=== PATIENT | female | born 1995 | race Caucasian/White ===

== ENCOUNTER 2016-05-09 09:13 | Inpatient (IN) | payer OTHER ==
[~2016-05-09] VITALS: Ht 167.6 cm; Wt 71.7 kg
[~2016-05-09 09:13] MED LIST: CLX20 PO
[2016-05-09] MEDS ORDERED: MULT-506 PO (09:39)
[2016-05-09] MEDS ORDERED: LORA-741 PO (09:39)
[2016-05-09] MEDS ORDERED: FLUO20CA35 PO (09:39)
[2016-05-09 10:19] LABS: HEMATOCRIT 40.4 % (37-47); MEAN CELL VOLUME 88.8 fL (80-100); MEAN CORPUSCULAR HEMOGLOBIN 30.5 pg (25-34); MEAN CORPUSCULAR HGB CONC 34.4 g/dl (32-36); MEAN PLATELET VOLUME 12.9 fL (7.4-10.4); PLATELET COUNT 164 K/uL (130-400); RED BLOOD COUNT 4.55 M/uL (4.2-5.4); WHITE BLOOD COUNT 4.05 K/uL (4.8-10.8)
[2016-05-09 10:37] LABS: BENZODIAZEPINE, URINE NEG (NEG); COCAINE,URINE NEG (NEG); PHENCYCLIDINE, URINE NEG (NEG)
[2016-05-09 10:44] LABS: BUN/CREATININE RATIO 11.1 (10-20); CALCIUM 9.2 mg/dl (8.5-10.1); CREATININE 0.83 mg/dl (0.60-1.20); POTASSIUM 3.5 mmol/L (3.5-5.1)
[2016-05-09 10:49] LABS: ACETAMINOPHEN < 2 ug/ml (10-30)
[2016-05-09 10:56] LABS: THYROID STIMULATING HORMONE 5.37 uIu/ml (0.300-4.500)
[2016-05-09] MEDS ORDERED: LORAZEPAM 0.5 MG TAB SL STA (14:38)
[2016-05-09 16:04] VITALS: O2SAT 99
--- NOTE | 2016-05-09 16:35 | EMERGENCY ROOM VISIT NOTE ---
History Report prepared by Jerel: Shayy Henry Under the Supervision of: Dr. Gene Muir M.D. First contact with patient: 09:34 Chief Complaint: ANXIETY Stated Complaint: ANXIETY, CHEST PRESURE History of Present Illness The patient is a 21 year old female who presents to the Emergency Room with complaints of progressively worsening anxiety and depression since she stopped taking Lexapro 1.5 months prior to arrival. 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 She states that the chest tightness and shortness of breath or common when she gets anxiety. They are not new symptoms or worsening. The patient has a history of anxiety and depression and was previously prescribed Lexapro, however, after she lost her insurance a few months ago, she was no longer able to get her script filled, so she weaned herself off of it, and completely stopped taking it 1.5 months ago. When she first stopped taking the medication, patient states that she was feeling fine, however, over the last several weeks, she has become progressively anxious and depressed. Patient states that she has now been having difficulty focusing as she has been having increased frequency of thoughts of wanting to hurt herself. She has though about "shooting herself", and states that there are fire arms locked away in her house, however she denies having a specific plan and she does not believe that she could follow through with it because she feels too scared. However, as her anxiety and depression have become worse, she is afraid that she may eventually overcome her fear, and then be able to harm herself, which has brought her to the ED today. The patient states that she was previously following up with psychiatry but she has not been able to see anyone for the past couple of months due to losing her insurance. She has been under increased stress as she is currently in the process of buying a house. Patient is not currently on control and she denies history of blood clots in her lungs or legs/ She also denies recent immobility, prolonged travels, fevers or cough. She does not believe that she is currently , but states that there is "always a chance". Source of History: patient Onset: over the past 1.5 months Position: other (generalized) Quality: other (anxiety, depression) Timing: worsening Modifying Factors (Worsening): other (stopping Lexapro) Associated Symptoms: + SOB, + chest pain, No fevers Review of Systems See HPI for pertinent positives & negatives. A total of 10 systems reviewed and were otherwise negative. Past Medical & Surgical Medical Problems: (1) Asthma (2) Bronchitis Surgical Problems: (1) History of cholecystectomy Family History Cancer Diabetes mellitus FHx: gallbladder disease Hypertension Social History Smoking Status: Current Some Day Smoker Alcohol Use: none, occasionally Marital Status: Housing Status: lives with family Occupation Status: employed Current/Historical Medications Scheduled Multivitamin (Multivitamin), 1 TAB PO DAILY Allergies Coded Allergies: Amoxicillin (Verified Allergy, Unknown, ., 05/09/16) Physical Exam Vital Signs Date Time Temp Pulse Resp B/P Pulse Ox O2 Delivery O2 Flow Rate FiO2 05/09/16 11:00 81 16 107/73 99 Room Air 05/09/16 09:26 36.8 99 18 134/89 100 Room Air Physical Exam Constitutional: Vital signs reviewed. Eyes: Pupils are equal round reactive to light. Conjunctiva are noninjected. ENT: Pharynx is clear without erythema or exudate. Mucous membranes are moist. Neck supple without meningeal signs. Respiratory: Clear to auscultation bilaterally. Breath sounds are equal bilaterally. Cardiovascular: Regular rate and rhythm. No rubs or gallops. GI: Soft, nondistended and nontender. Bowel sounds are present. Musculoskeletal: No peripheral edema. No lower extremity tenderness. Integumentary: No cyanosis. Neurological: The patient is awake and alert. No focal deficits. Psychiatric: Anxious, depressed affect. Medical Decision & Procedures Laboratory Results 05/09/16 10:00 05/09/16 10:00 Test 05/09/16 09:37 05/09/16 10:00 Urine Test NEG (NEG) Urine Opiates Screen NEG (NEG) Urine Methadone, Qualitative NEG (NEG) Urine Barbiturates NEG (NEG) Urine Phencyclidine (PCP) Level NEG (NEG) Ur Amphetamine/Methamphetamine NEG (NEG) MDMA (Ecstasy) Screen NEG (NEG) Urine Benzodiazepines Screen NEG (NEG) Urine Cocaine Metabolite NEG (NEG) Urine Marijuana (THC) NEG (NEG) Red Blood Count 4.55 M/uL (4.2-5.4) Mean Corpuscular Volume 88.8 fL (80-100) Mean Corpuscular Hemoglobin 30.5 pg (25-34) Mean Corpuscular Hemoglobin Concent 34.4 g/dl (32-36) RDW Standard Deviation 42.1 fL (36.4-46.3) RDW Coefficient of Variation 13.0 % (11.5-14.5) Mean Platelet Volume 12.9 fL (7.4-10.4) Anion Gap 9.0 mmol/L (3-11) Est Creatinine Clear Calc Drug Dose 111.1 ml/min Estimated GFR () 116.8 Estimated GFR (Non- 100.8 BUN/Creatinine Ratio 11.1 (10-20) Calcium Level 9.2 mg/dl (8.5-10.1) Total Bilirubin 1.0 mg/dl (0.2-1) Direct Bilirubin 0.2 mg/dl (0-0.2) Aspartate Amino Transf (AST/SGOT) 11 U/L (15-37) Alanine Aminotransferase (ALT/SGPT) 15 U/L (12-78) Alkaline Phosphatase 43 U/L (45-117) Total Protein 7.7 gm/dl (6.4-8.2) Albumin 4.5 gm/dl (3.4-5.0) Thyroid Stimulating Hormone (TSH) 5.370 uIu/ml (0.300-4.500) Free Thyroxine 1.25 ng/dl (0.80-1.60) Salicylates Level < 1.7 mg/dl (2.8-20) Acetaminophen Level < 2 ug/ml (10-30) Ethyl Alcohol mg/dL < 3.0 mg/dl (0-3) .Laboratory results as reviewed by me. Medications Administered ECG Indication: chest pain Rate (beats per minute): 83 Rhythm: normal sinus Findings: no acute ischemic change, no ectopy ED Course 0938: The patient was evaluated in room A6. A complete history and physical exam was performed. 1105: The patient was medically cleared at this time. Psychiatric case management will talk with the patient about possible treatment options. 1200: Case management has spoken with the patient about possible treatment options. Alvin Lewis will be in to evaluate her. 1438: Patient was beginning to feel more anxious. Ativan tab 0.5 mg SL was ordered. 1500: [facility] has evaluated the patient. She will be transferred up to their facility for further management. The patient verbalized understanding and agreement with this treatment plan. Medical Decision This is a 21-year-old female presents with anxiety, depression and suicidal ideation. I did perform a limited focused review of portions of the patient's old chart on the electronic medical record. The patient was here in 2010 for chest pain. She had a negative CT of her chest during her visit at that time. I did evaluate the patient as noted above. The patient has lost her medical insurance and stopped taking her Lexapro as well as became unable to see her physicians. She has had increasing depression and suicidal ideation and anxiety. She does complain of chest tightness and shortness of breath but states that this is common when she gets anxiety. She does not have any known risk factors for pulmonary embolism or cardiac disease. Her symptoms did improve with Ativan she took earlier today. She does state that the Ativan was and maybe less effective because of this. I did order and personally review the patient's 12-lead EKG as described above. I did order and review the patient's blood work as noted in the electronic medical record. I did treat the patient with Ativan 0.5 mg sublingually. I did medically clear the patient. She was evaluated by mental health and admitted to [facility]. Impression Primary Impression: Mood disorder Additional Impression: Suicidal ideation Scribe Attestation The scribe's documentation has been prepared under my direct and personally reviewed by me in its entirety. I confirm that the note above accurately reflects all work, treatment, procedures, and medical decision making performed by me. Departure Information Dispostion Mental Health Acute Care Referrals Sven Galindo M.D. (PCP) Problem Qualifiers
[2016-05-09] MEDS ORDERED: ACETAMINOPHEN 325 MG TAB PO PRN (16:45)
[2016-05-09] MEDS ORDERED: SODIUM CHLORIDE 0.65% NA SOLN 45 ML (OCEAN) PRN (16:45)
[2016-05-09] MEDS ORDERED: ALUMINUM/MAGNESIUM SUSP 30 ML UDC PO PRN (16:45)
[2016-05-09] MEDS ORDERED: hydrOXYzine HCL 25 MG TAB PO PRN ×2 (16:45)
[2016-05-09] MEDS ORDERED: BISMUTH SUBSALICYLATE PER ML OMNICELL CHARGE PO PRN (16:45)
[2016-05-09] MEDS ORDERED: MAGNESIUM HYDROXIDE SUSP 30 ML UDC PO PRN (16:45)
[2016-05-09 16:50] VITALS: BP 122/75; PULSE 82; TEMP 36.8; BMI 25.5
[2016-05-09 16:53] VITALS: BP 122/75; PULSE 82; TEMP 36.8; Ht 167.6 cm; Wt 71.7 kg
[2016-05-10 06:50] VITALS: BP_SYST 113; BP_SYST 116; BP_DIAS 59; BP_DIAS 71; PULSE 112; PULSE 82; TEMP 36.8
[2016-05-10] MEDS ORDERED: LORAZEPAM 1 MG TAB PO PRN (11:45)
[2016-05-10] MEDS ORDERED: ESCITALOPRAM OXALATE 10 MG TAB PO ONE (12:00)
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
[2016-05-11 06:57] VITALS: BP_SYST 106; BP_SYST 111; BP_DIAS 62; BP_DIAS 66; PULSE 73; PULSE 78; TEMP 36.8
[2016-05-11] MEDS: ESCITALOPRAM OXALATE 10 MG TAB PO SCH (09:08)
--- NOTE | 2016-05-11 12:55 | Psychiatric Progress Notes ---
Progress Note Date of Service May 11, 2016. Interval History 21 yo female admitted voluntarily on 05/10 with severe depression, anxiety and panic. had been stable on meds for 2 years, but went off of meds 1-2 months ago , and destabilized. Chief Complaint "I had a panic attack in group.". Subjective Patient was seen & assessed interval progress reviewed with Treatment Team. The patient remains anxious today. She says that she woke feeling anxious as she has been, and then waited in anticipation of having a panic attack, which then occurred during group. Nothing in group triggered it, but says just waiting for it did. She was able to get through it herself, without use of meds. Yesterday she had a panic attack and used ativan prn which she found unhelpful until she took a prn of vistaril afterward. Her mood remains depressed with some thought of SI as she doesn't want to live with the panic attacks. She is now convinced that she would rather stay on meds for the rest of her life than suffer the attacks. Review of Systems Constitutional: + fatigue ENT: No dental problems, No hearing loss, No nasal symptoms, No problem reported, No sore throat, No tinnitus, No trouble swallowing, No unusual epistaxis Respiratory: + shortness of breath (with panic) Cardiovascular: No PND, No chest pain, No claudication, No edema, No orthopnea , No palpitations, No problem reported Abdomen: No GI bleeding, No constipation, No diarrhea, No nausea, No pain, No problem reported, No vomiting Musculoskeletal: No calf pain, No joint pain, No muscle pain, No problem reported, No swelling Neurologic: No balance problems, No memory loss, No numbness/tingling, No paralysis, No problem reported, No vertigo, No weakness Psychiatric: + anxiety (with panic), + depression symptoms (with SI) Sleep Information Total Hours of Sleep: 6.50 Meal Information Percent of Breakfast Consumed: 100 Percent of Dinner Consumed: 25 Mental Status Exam During interview pt is: alert and oriented, cooperative Appearance: appropriately dressed, appropriately groomed Eye contact is: good Motor behavior is: steady gait & station, no abnormal motor movements Speech: normal in rate, rhythm & volume Affect: mood congruent, flat Mood is: depressed, anxious Thought process: goal directed, linear, logical Thought content: reality based without delusions Suicidal thought are: present Homicidal thoughts are: denied Hallucinations: denies auditory, denies visual Cognition: memory grossly intact, attention grossly intact Intelligence estimated to be: average Insight: impaired Judgement: impaired Impression The patient remains depressed and anxious. Panic continues. Lexapro restarted yesterday and tolerating without side effects. Will titrate to 20 mg as soon as possible. Family meeting with scheduled for today. Continued Inpatient Care The patient continues to require inpatient care due to the severity of her condition and the risk for suicide if discharged. Plan (1) Major depressive disorder, recurrent severe without psychotic features 05/11 - Continue Lexapro 10 mg. daily - Family meeting with today - Q 15 min checks for safety - Encourage participation in group and individual counseling - The patient will need psychiatric aftercare - Assist the patient to learn and utilize healthy coping strategies. - obtain op records from previous providers (2) GERA (generalized anxiety disorder) 05/11 - Lexapro as above - Continue prn ativan and vistaril for panic - Expose the patient to education re: mindfulness, meditation, relaxation Discharge / Aftercare Planning Primary Care Physician: Name: Dr. Galindo Psychiatrist: Name: Dr. Deleon in the past Therapist: Name: Libby Lin [facility] Date of Appointment: May 22, 2016 Time of Appointment: 2pm Wireless Team Member: Name: none Visit Code E&M Code: 95789 Risk Factors Assessment : Yes /single/: No Higher / Fall in social status: No Access to guns: No Health problems: No Mental Health Diagnoses: Yes Substance use disorders: No Protective Factors Assessment : Yes Responsible for young children: No Employed: Yes Supportive family: Yes Data Vital Signs Last 24 Hrs: Date Time Temp Pulse Resp B/P Pulse Ox O2 Delivery O2 Flow Rate FiO2 05/11/16 06:57 36.8 78 16 106/66 73 111/62 Meds Administered Last 24 Hrs: Meds Administered (Past 24Hrs) Medications (Trade) Dose Ordered Sig/Howard Route Start Time Stop Time Status Last Admin Dose Admin Lorazepam (Ativan Tab) 0.5 mg NOW STAT SL 05/09/16 14:38 05/09/16 14:40 DC 05/09/16 14:42 0.5 MG Hydroxyzine HCl (Vistaril Tab) 25 mg Q4H PRN PO 05/09/16 16:45 06/08/16 16:44 05/10/16 16:32 25 MG Escitalopram Oxalate (Lexapro Tab) 10 mg QAM PO 05/11/16 09:00 06/10/16 08:59 05/11/16 09:08 10 MG Escitalopram Oxalate (Lexapro Tab) 10 mg NOW ONCE PO 05/10/16 12:00 05/10/16 12:01 DC 05/10/16 12:23 10 MG Lorazepam (Ativan Tab) 0.5 mg Q8 PRN PO 05/10/16 11:45 06/09/16 11:44 05/10/16 14:18 0.5 MG Lab Results Last 24 Hrs: 05/09/16 10:00 05/09/16 10:00 Test 05/09/16 09:37 05/09/16 10:00 Urine Test NEG (NEG) Urine Opiates Screen NEG (NEG) Urine Methadone, Qualitative NEG (NEG) Urine Barbiturates NEG (NEG) Urine Phencyclidine (PCP) Level NEG (NEG) Ur Amphetamine/Methamphetamine NEG (NEG) MDMA (Ecstasy) Screen NEG (NEG) Urine Benzodiazepines Screen NEG (NEG) Urine Cocaine Metabolite NEG (NEG) Urine Marijuana (THC) NEG (NEG) Red Blood Count 4.55 M/uL (4.2-5.4) Mean Corpuscular Volume 88.8 fL (80-100) Mean Corpuscular Hemoglobin 30.5 pg (25-34) Mean Corpuscular Hemoglobin Concent 34.4 g/dl (32-36) RDW Standard Deviation 42.1 fL (36.4-46.3) RDW Coefficient of Variation 13.0 % (11.5-14.5) Mean Platelet Volume 12.9 fL (7.4-10.4) Anion Gap 9.0 mmol/L (3-11) Est Creatinine Clear Calc Drug Dose 111.1 ml/min Estimated GFR () 116.8 Estimated GFR (Non- 100.8 BUN/Creatinine Ratio 11.1 (10-20) Calcium Level 9.2 mg/dl (8.5-10.1) Total Bilirubin 1.0 mg/dl (0.2-1) Direct Bilirubin 0.2 mg/dl (0-0.2) Aspartate Amino Transf (AST/SGOT) 11 U/L (15-37) Alanine Aminotransferase (ALT/SGPT) 15 U/L (12-78) Alkaline Phosphatase 43 U/L (45-117) Total Protein 7.7 gm/dl (6.4-8.2) Albumin 4.5 gm/dl (3.4-5.0) Thyroid Stimulating Hormone (TSH) 5.370 uIu/ml (0.300-4.500) Free Thyroxine 1.25 ng/dl (0.80-1.60) Salicylates Level < 1.7 mg/dl (2.8-20) Acetaminophen Level < 2 ug/ml (10-30) Ethyl Alcohol mg/dL < 3.0 mg/dl (0-3)
[2016-05-12 06:49] VITALS: BP_SYST 115; BP_DIAS 70; BP_DIAS 71; PULSE 72; PULSE 90; TEMP 36.5
[2016-05-12] MEDS: ESCITALOPRAM OXALATE 10 MG TAB PO SCH (08:42)
--- NOTE | 2016-05-12 09:47 | Psychiatric Progress Notes ---
Progress Note Date of Service May 12, 2016. Interval History 21 yo female admitted voluntarily on 05/10 with severe depression, anxiety and panic. had been stable on meds for 2 years, but went off of meds 1-2 months ago , and destabilized. Chief Complaint "Anxious.". Subjective Patient was seen & assessed interval progress reviewed with Treatment Team. The patient awoke with anxiety again which precipitated fleeting SI. She had a family meeting with her and father yesterday which she thought went well. She talked about the purchase of a home that they will likely close on in the near future, worrying about leaving her father alone (currently lives with father). She has some excitement about having her first home with her , but its tainted by her anxiety currently. She had 2 panic attacks yesterday but chose not to use any prn medications. Today is having some chest pains and is considering taking something as she is worrying about it. Nursing reports that affectively she is very flat around the unit, but is participating in groups and individual counseling. Review of Systems Constitutional: No chills, No fatigue, No fever, No problem reported, No sweats , No weakness, No weight loss ENT: No dental problems, No hearing loss, No nasal symptoms, No problem reported, No sore throat, No tinnitus, No trouble swallowing, No unusual epistaxis Respiratory: No cough, No dyspnea at rest, No dyspnea on exertion, No hemoptysis, No problem reported, No shortness of breath, No sputum, No wheezing Cardiovascular: No PND, No chest pain, No claudication, No edema, No orthopnea , No palpitations, No problem reported Abdomen: No GI bleeding, No constipation, No diarrhea, No nausea, No pain, No problem reported, No vomiting Musculoskeletal: + problem reported (left sided chest pain, under arm, thinks its GI related) Neurologic: No balance problems, No memory loss, No numbness/tingling, No paralysis, No problem reported, No vertigo, No weakness Psychiatric: + anxiety, + depression symptoms (with fleeting SI) Integumentary: No bleeding, No color change, No itch, No new/changing skin lesions, No problem reported, No rash Sleep Information Total Hours of Sleep: 7.00 Meal Information Percent of Breakfast Consumed: 100 Percent of Lunch Consumed: 100 Percent of Dinner Consumed: 100 Mental Status Exam During interview pt is: alert and oriented, cooperative Appearance: appropriately dressed, appropriately groomed Eye contact is: good Motor behavior is: steady gait & station, no abnormal motor movements Speech: normal in rate, rhythm & volume Affect: mood congruent, flat Mood is: depressed, anxious Thought process: goal directed, linear, logical Thought content: reality based without delusions Suicidal thought are: present Homicidal thoughts are: denied Hallucinations: denies auditory, denies visual Cognition: memory grossly intact, attention grossly intact Intelligence estimated to be: average Insight: impaired Judgement: impaired Impression The patient remains depressed and anxious. Panic continues. Is tolerating start of Lexapro and will increase to 20 mg. starting tomorrow. She has been on this previously and tolerated without side effects. Fleeting SI continue, but less severe. She does not think that she is ready to be discharged. Continued Inpatient Care The patient continues to require inpatient care due to the severity of her condition and the risk for suicide if discharged. Plan (1) Major depressive disorder, recurrent severe without psychotic features 05/11 - Continue Lexapro 10 mg. daily - Family meeting with today - Q 15 min checks for safety - Encourage participation in group and individual counseling - The patient will need psychiatric aftercare - Assist the patient to learn and utilize healthy coping strategies. - obtain op records from previous providers 05/12 - Increase Lexapro to 20 mg starting tomorrow AM (2) GERA (generalized anxiety disorder) 05/11 - Lexapro as above - Continue prn ativan and vistaril for panic - Expose the patient to education re: mindfulness, meditation, relaxation 05/12 - Lexapro as above Discharge / Aftercare Planning Primary Care Physician: Name: Dr. Galindo Psychiatrist: Name: Dr. Deleon in the past Therapist: Name: Libby Lin [facility] Date of Appointment: May 22, 2016 Time of Appointment: 2pm Sole Cutter: Name: none Visit Code E&M Code: 59786 Risk Factors Assessment : Yes /single/: No Higher / Fall in social status: No Access to guns: No Health problems: No Mental Health Diagnoses: Yes Substance use disorders: No Protective Factors Assessment : Yes Responsible for young children: No Employed: Yes Supportive family: Yes Data Vital Signs Last 24 Hrs: Date Time Temp Pulse Resp B/P Pulse Ox O2 Delivery O2 Flow Rate FiO2 05/12/16 06:49 36.5 72 16 115/71 90 115/70 Meds Administered Last 24 Hrs: Meds Administered (Past 24Hrs) Medications (Trade) Dose Ordered Sig/Howard Route Start Time Stop Time Status Last Admin Dose Admin Escitalopram Oxalate (Lexapro Tab) 10 mg QAM PO 05/11/16 09:00 06/10/16 08:59 05/12/16 08:42 10 MG Escitalopram Oxalate (Lexapro Tab) 10 mg NOW ONCE PO 05/10/16 12:00 05/10/16 12:01 DC 05/10/16 12:23 10 MG Lorazepam (Ativan Tab) 0.5 mg Q8 PRN PO 05/10/16 11:45 06/09/16 11:44 05/10/16 14:18 0.5 MG Lab Results Last 24 Hrs: 05/09/16 10:00 05/09/16 10:00 Test 05/09/16 09:37 05/09/16 10:00 Urine Test NEG (NEG) Urine Opiates Screen NEG (NEG) Urine Methadone, Qualitative NEG (NEG) Urine Barbiturates NEG (NEG) Urine Phencyclidine (PCP) Level NEG (NEG) Ur Amphetamine/Methamphetamine NEG (NEG) MDMA (Ecstasy) Screen NEG (NEG) Urine Benzodiazepines Screen NEG (NEG) Urine Cocaine Metabolite NEG (NEG) Urine Marijuana (THC) NEG (NEG) Red Blood Count 4.55 M/uL (4.2-5.4) Mean Corpuscular Volume 88.8 fL (80-100) Mean Corpuscular Hemoglobin 30.5 pg (25-34) Mean Corpuscular Hemoglobin Concent 34.4 g/dl (32-36) RDW Standard Deviation 42.1 fL (36.4-46.3) RDW Coefficient of Variation 13.0 % (11.5-14.5) Mean Platelet Volume 12.9 fL (7.4-10.4) Anion Gap 9.0 mmol/L (3-11) Est Creatinine Clear Calc Drug Dose 111.1 ml/min Estimated GFR () 116.8 Estimated GFR (Non- 100.8 BUN/Creatinine Ratio 11.1 (10-20) Calcium Level 9.2 mg/dl (8.5-10.1) Total Bilirubin 1.0 mg/dl (0.2-1) Direct Bilirubin 0.2 mg/dl (0-0.2) Aspartate Amino Transf (AST/SGOT) 11 U/L (15-37) Alanine Aminotransferase (ALT/SGPT) 15 U/L (12-78) Alkaline Phosphatase 43 U/L (45-117) Total Protein 7.7 gm/dl (6.4-8.2) Albumin 4.5 gm/dl (3.4-5.0) Thyroid Stimulating Hormone (TSH) 5.370 uIu/ml (0.300-4.500) Free Thyroxine 1.25 ng/dl (0.80-1.60) Salicylates Level < 1.7 mg/dl (2.8-20) Acetaminophen Level < 2 ug/ml (10-30) Ethyl Alcohol mg/dL < 3.0 mg/dl (0-3)
[2016-05-13 06:59] VITALS: BP_SYST 102; BP_SYST 115; BP_DIAS 68; BP_DIAS 74; PULSE 67; PULSE 88; TEMP 36.8
--- NOTE | 2016-05-13 09:09 | Psychiatric Progress Notes ---
Progress Note Date of Service May 13, 2016. Interval History 21 yo female admitted voluntarily on 05/10 with severe depression, anxiety and panic. had been stable on meds for 2 years, but went off of meds 1-2 months ago , and destabilized. Chief Complaint "I had a bad night.". Subjective Patient was seen & assessed interval progress reviewed with Treatment Team. The patient says that she had a hard time falling asleep and so took a prn vistaril. This precipitated acute anxiety, worrying that the medicine would "knock me out", and today says "I don't even know why I would worry about that. ". She awoke anxious again this AM. She tries to cope using relaxation, breathing exercises, trying to stay grounded. She still experienced sI during her most anxious times. Appetite is down this AM 2/2 anxiety, but has otherwise been good. Nursing reports that she has been making good use of group and individual counseling. Review of Systems Constitutional: + fatigue ENT: No dental problems, No hearing loss, No nasal symptoms, No problem reported, No sore throat, No tinnitus, No trouble swallowing, No unusual epistaxis Respiratory: No cough, No dyspnea at rest, No dyspnea on exertion, No hemoptysis, No problem reported, No shortness of breath, No sputum, No wheezing Cardiovascular: No PND, No chest pain, No claudication, No edema, No orthopnea , No palpitations, No problem reported Abdomen: No GI bleeding, No constipation, No diarrhea, No nausea, No pain, No problem reported, No vomiting Musculoskeletal: No calf pain, No joint pain, No muscle pain, No problem reported, No swelling Neurologic: No balance problems, No memory loss, No numbness/tingling, No paralysis, No problem reported, No vertigo, No weakness Psychiatric: + anxiety, + depression symptoms, + insomnia Sleep Information Total Hours of Sleep: 5.00 Meal Information Percent of Breakfast Consumed: 100 Percent of Lunch Consumed: 100 Percent of Dinner Consumed: 100 Mental Status Exam During interview pt is: alert and oriented, cooperative Appearance: appropriately dressed, appropriately groomed Eye contact is: good Motor behavior is: steady gait & station, no abnormal motor movements Speech: normal in rate, rhythm & volume Affect: mood congruent, flat Mood is: depressed, anxious Thought process: goal directed, linear, logical Thought content: reality based without delusions Suicidal thought are: present Homicidal thoughts are: denied Hallucinations: denies auditory, denies visual Cognition: memory grossly intact, attention grossly intact Intelligence estimated to be: average Insight: impaired Judgement: impaired Impression The patient remains depressed and anxious. Panic continues.Lexapro goes to 20 mg this AM. Will provide the patient with some educational material re: mindfulness in an effort to expand her coping strategies. Continued Inpatient Care The patient continues to require inpatient care due to the severity of her condition and the risk for suicide if discharged. Plan (1) Major depressive disorder, recurrent severe without psychotic features 05/11 - Continue Lexapro 10 mg. daily - Family meeting with today - Q 15 min checks for safety - Encourage participation in group and individual counseling - The patient will need psychiatric aftercare - Assist the patient to learn and utilize healthy coping strategies. - obtain op records from previous providers 05/12 - Increase Lexapro to 20 mg starting tomorrow AM 05/13 - Provide the patient with educational materials on mindfulness - Continue Lexapro 20 mg. daily (2) GERA (generalized anxiety disorder) 05/11 - Lexapro as above - Continue prn ativan and vistaril for panic - Expose the patient to education re: mindfulness, meditation, relaxation 05/12 - Lexapro as above Discharge / Aftercare Planning Primary Care Physician: Name: Dr. Galindo Psychiatrist: Name: Dr. Deleon in the past Therapist: Name: RAY Charlton Date of Appointment: May 22, 2016 Time of Appointment: 2pm [place] Man: Name: none Visit Code E&M Code: 49991 Risk Factors Assessment : Yes /single/: No Higher / Fall in social status: No Access to guns: No Health problems: No Mental Health Diagnoses: Yes Substance use disorders: No Protective Factors Assessment : Yes Responsible for young children: No Employed: Yes Supportive family: Yes Data Vital Signs Last 24 Hrs: Date Time Temp Pulse Resp B/P Pulse Ox O2 Delivery O2 Flow Rate FiO2 05/13/16 06:59 36.8 67 16 102/68 88 115/74 Meds Administered Last 24 Hrs: Current Inpatient Medications Medications (Trade) Dose Ordered Sig/Howard Route Start Time Stop Time Status Last Admin Dose Admin Acetaminophen (Tylenol Tab) 650 mg Q4H PRN PO 05/09/16 16:45 06/08/16 16:44 Bismuth Subsalicylate (Kaopectate Liqd) 15 ml PRN PRN PO 05/09/16 16:45 06/08/16 16:44 Al Hydroxide/Mg Hydroxide (Maalox Susp) 30 ml Q4H PRN PO 05/09/16 16:45 06/08/16 16:44 Magnesium Hydroxide (Milk Of Magnesia Susp) 30 ml DAILY PRN PO 05/09/16 16:45 06/08/16 16:44 Sodium Chloride ([place] Nasal [place]) PRN PRN NA 05/09/16 16:45 06/08/16 16:44 Hydroxyzine HCl (Vistaril Tab) 50 mg HSZ PRN PO 05/09/16 16:45 06/08/16 16:44 05/13/16 00:07 50 MG Hydroxyzine HCl (Vistaril Tab) 25 mg Q4H PRN PO 05/09/16 16:45 06/08/16 16:44 05/10/16 16:32 25 MG Lorazepam (Ativan Tab) 0.5 mg Q8 PRN PO 05/10/16 11:45 06/09/16 11:44 05/10/16 14:18 0.5 MG Escitalopram Oxalate (Lexapro Tab) 20 mg QAM PO 05/13/16 09:00 06/12/16 08:59 Lab Results Last 24 Hrs: 05/09/16 10:00 05/09/16 10:00 Test 05/09/16 09:37 05/09/16 10:00 Urine Test NEG (NEG) Urine Opiates Screen NEG (NEG) Urine Methadone, Qualitative NEG (NEG) Urine Barbiturates NEG (NEG) Urine Phencyclidine (PCP) Level NEG (NEG) Ur Amphetamine/Methamphetamine NEG (NEG) MDMA (Ecstasy) Screen NEG (NEG) Urine Benzodiazepines Screen NEG (NEG) Urine Cocaine Metabolite NEG (NEG) Urine Marijuana (THC) NEG (NEG) Red Blood Count 4.55 M/uL (4.2-5.4) Mean Corpuscular Volume 88.8 fL (80-100) Mean Corpuscular Hemoglobin 30.5 pg (25-34) Mean Corpuscular Hemoglobin Concent 34.4 g/dl (32-36) RDW Standard Deviation 42.1 fL (36.4-46.3) RDW Coefficient of Variation 13.0 % (11.5-14.5) Mean Platelet Volume 12.9 fL (7.4-10.4) Anion Gap 9.0 mmol/L (3-11) Est Creatinine Clear Calc Drug Dose 111.1 ml/min Estimated GFR () 116.8 Estimated GFR (Non- 100.8 BUN/Creatinine Ratio 11.1 (10-20) Calcium Level 9.2 mg/dl (8.5-10.1) Total Bilirubin 1.0 mg/dl (0.2-1) Direct Bilirubin 0.2 mg/dl (0-0.2) Aspartate Amino Transf (AST/SGOT) 11 U/L (15-37) Alanine Aminotransferase (ALT/SGPT) 15 U/L (12-78) Alkaline Phosphatase 43 U/L (45-117) Total Protein 7.7 gm/dl (6.4-8.2) Albumin 4.5 gm/dl (3.4-5.0) Thyroid Stimulating Hormone (TSH) 5.370 uIu/ml (0.300-4.500) Free Thyroxine 1.25 ng/dl (0.80-1.60) Salicylates Level < 1.7 mg/dl (2.8-20) Acetaminophen Level < 2 ug/ml (10-30) Ethyl Alcohol mg/dL < 3.0 mg/dl (0-3)
[2016-05-13] MEDS: ESCITALOPRAM OXALATE 20 MG TAB PO SCH (09:58)
--- NOTE | 2016-05-13 10:07 | Psych Management Progress Note ---
Psychiatry Miscellaneous Date of Service: May 13, 2016. Patient seen, MS assessed. Rates ongoing mood difficulties, notes panic attack last pm after prn Vistaril for difficulty falling asleep. Cooperative with care and treatment plan as outlined by MOLD LAMINATOR. Encouraged participation in therapeutic activities. Provided good feedback to peers in community meeting.
[2016-05-14 06:51] VITALS: BP_SYST 103; BP_SYST 110; BP_DIAS 64; BP_DIAS 71; PULSE 73; PULSE 92; TEMP 36.5
[2016-05-14] MEDS: ESCITALOPRAM OXALATE 20 MG TAB PO SCH (09:03)
--- NOTE | 2016-05-14 11:36 | Psychiatric Progress Notes ---
Progress Note Date of Service May 14, 2016. Interval History 21 yo female admitted voluntarily on 05/10 with severe depression, anxiety and panic. had been stable on meds for 2 years, but went off of meds 1-2 months ago , and destabilized. Chief Complaint "I feel better.". Subjective Patient was seen & assessed interval progress reviewed with nursing. For this first day, the patient says that she is feeling better and without acute anxiety , "I really don't have any.". she is happy and is thinking that she is now ready to go home. She read the material provided re: mindfulness which she said was helpful. Sleep was better, appetite is good. She denies SI and if forward thinking, looking forward to getting home with her . Review of Systems Constitutional: No chills, No fatigue, No fever, No problem reported, No sweats , No weakness, No weight loss ENT: No dental problems, No hearing loss, No nasal symptoms, No problem reported, No sore throat, No tinnitus, No trouble swallowing, No unusual epistaxis Respiratory: No cough, No dyspnea at rest, No dyspnea on exertion, No hemoptysis, No problem reported, No shortness of breath, No sputum, No wheezing Cardiovascular: No PND, No chest pain, No claudication, No edema, No orthopnea , No palpitations, No problem reported Abdomen: No GI bleeding, No constipation, No diarrhea, No nausea, No pain, No problem reported, No vomiting Musculoskeletal: No calf pain, No joint pain, No muscle pain, No problem reported, No swelling Neurologic: No balance problems, No memory loss, No numbness/tingling, No paralysis, No problem reported, No vertigo, No weakness Psychiatric: + anxiety (denies today), + depression symptoms (improved) Sleep Information Total Hours of Sleep: 5.00 Meal Information Percent of Breakfast Consumed: 50 Percent of Lunch Consumed: 100 Percent of Dinner Consumed: 100 Mental Status Exam During interview pt is: alert and oriented, cooperative Appearance: appropriately dressed, appropriately groomed Eye contact is: good Motor behavior is: steady gait & station, no abnormal motor movements Speech: normal in rate, rhythm & volume Affect: mood congruent, flat Mood is: depressed, anxious Thought process: goal directed, linear, logical Thought content: reality based without delusions Suicidal thought are: present Homicidal thoughts are: denied Hallucinations: denies auditory, denies visual Cognition: memory grossly intact, attention grossly intact Intelligence estimated to be: average Insight: impaired Judgement: impaired Impression Having a good day, without anxiety and is feeling like she would like to go home. If she can sustain this progress, will consider discharge as soon as tomorrow. Continued Inpatient Care The patient continues to require inpatient care due to the severity of her condition and the risk for suicide if discharged. Plan (1) Major depressive disorder, recurrent severe without psychotic features 05/11 - Continue Lexapro 10 mg. daily - Family meeting with today - Q 15 min checks for safety - Encourage participation in group and individual counseling - The patient will need psychiatric aftercare - Assist the patient to learn and utilize healthy coping strategies. - obtain op records from previous providers 05/12 - Increase Lexapro to 20 mg starting tomorrow AM 05/13 - Provide the patient with educational materials on mindfulness - Continue Lexapro 20 mg. daily (2) GERA (generalized anxiety disorder) 05/11 - Lexapro as above - Continue prn ativan and vistaril for panic - Expose the patient to education re: mindfulness, meditation, relaxation 05/12 - Lexapro as above Discharge / Aftercare Planning Primary Care Physician: Name: Dr. Galindo Psychiatrist: Name: Dr. Deleon in the past Therapist: Name: RAY Charlton Date of Appointment: May 22, 2016 Time of Appointment: 2pm Admissions Specialist: Name: none Visit Code E&M Code: 48289 Risk Factors Assessment : Yes /single/: No Higher / Fall in social status: No Access to guns: No Health problems: No Mental Health Diagnoses: Yes Substance use disorders: No Protective Factors Assessment : Yes Responsible for young children: No Employed: Yes Supportive family: Yes Data Vital Signs Last 24 Hrs: Date Time Temp Pulse Resp B/P Pulse Ox O2 Delivery O2 Flow Rate FiO2 05/14/16 06:51 36.5 73 16 110/71 92 103/64 Meds Administered Last 24 Hrs: Meds Administered (Past 24Hrs) Medications (Trade) Dose Ordered Sig/Howard Route Start Time Stop Time Status Last Admin Dose Admin Escitalopram Oxalate (Lexapro Tab) 20 mg QAM PO 05/13/16 09:00 06/12/16 08:59 05/14/16 09:03 20 MG Lab Results Last 24 Hrs: 05/09/16 10:00 05/09/16 10:00 Test 05/09/16 09:37 05/09/16 10:00 Urine Test NEG (NEG) Urine Opiates Screen NEG (NEG) Urine Methadone, Qualitative NEG (NEG) Urine Barbiturates NEG (NEG) Urine Phencyclidine (PCP) Level NEG (NEG) Ur Amphetamine/Methamphetamine NEG (NEG) MDMA (Ecstasy) Screen NEG (NEG) Urine Benzodiazepines Screen NEG (NEG) Urine Cocaine Metabolite NEG (NEG) Urine Marijuana (THC) NEG (NEG) Red Blood Count 4.55 M/uL (4.2-5.4) Mean Corpuscular Volume 88.8 fL (80-100) Mean Corpuscular Hemoglobin 30.5 pg (25-34) Mean Corpuscular Hemoglobin Concent 34.4 g/dl (32-36) RDW Standard Deviation 42.1 fL (36.4-46.3) RDW Coefficient of Variation 13.0 % (11.5-14.5) Mean Platelet Volume 12.9 fL (7.4-10.4) Anion Gap 9.0 mmol/L (3-11) Est Creatinine Clear Calc Drug Dose 111.1 ml/min Estimated GFR () 116.8 Estimated GFR (Non- 100.8 BUN/Creatinine Ratio 11.1 (10-20) Calcium Level 9.2 mg/dl (8.5-10.1) Total Bilirubin 1.0 mg/dl (0.2-1) Direct Bilirubin 0.2 mg/dl (0-0.2) Aspartate Amino Transf (AST/SGOT) 11 U/L (15-37) Alanine Aminotransferase (ALT/SGPT) 15 U/L (12-78) Alkaline Phosphatase 43 U/L (45-117) Total Protein 7.7 gm/dl (6.4-8.2) Albumin 4.5 gm/dl (3.4-5.0) Thyroid Stimulating Hormone (TSH) 5.370 uIu/ml (0.300-4.500) Free Thyroxine 1.25 ng/dl (0.80-1.60) Salicylates Level < 1.7 mg/dl (2.8-20) Acetaminophen Level < 2 ug/ml (10-30) Ethyl Alcohol mg/dL < 3.0 mg/dl (0-3)
[2016-05-15 07:00] VITALS: BP_SYST 102; BP_SYST 110; BP_DIAS 65; BP_DIAS 70; PULSE 76; PULSE 92; TEMP 37
[2016-05-15] MEDS: ESCITALOPRAM OXALATE 20 MG TAB PO SCH (08:53)
[2016-05-15] MEDS ORDERED: LXP20 PO (09:11)
--- NOTE | 2016-05-15 09:25 | Discharge Instructions ---
Discharge Information Report Includes Report will include the: Discharge Instructions & Summary Admission Admission Date / Time: May 09, 2016 at 14:07 Reason for Admission: Depression Nos Discharge Discharge Diagnosis / Problem: Depression and anxiety Condition at Discharge: Good Discharge Goals Goal(s): Decrease discomfort, Improve disease control, Prevent Disease Progression Activity Recommendations Activity Limitations: resume your previous activity . Instructions / Follow-Up Instructions / Follow-Up . SPECIAL CARE INSTRUCTIONS: 1. Follow through with your scheduled aftercare appointments. If unable to keep an appointment, please call to reschedule. 2. Take your medication only as prescribed. Medication should not be changed or stopped without the approval of your doctor. In the event of worsening symptoms or concerns about side effects, contact your doctor immediately. 3. Utilize new healthy coping skills, anger management skills, and stress management skills learned during your hospitalization. Journal feelings and process them with a support person. Identify stressors or situations that may result in relapse, deterioration or inappropriate behaviors and develop a plan to deal with those issues. 4. If your coping skills are ineffective and you are in crisis, contact your outpatient providers for direction. If unable to reach your providers, please call the CAN HELP LINE AT or go to the closest Emergency Room. 5. Avoid alcohol and un-prescribed drugs. 6. You have been provided with the Mental Health Advance Directives Pamphlet for your review. AFTERCARE APPOINTMENTS: * Please call your insurance company prior to your scheduled appointment to confirm your aftercare providers are covered. Take your insurance information to your appointments. . Discharge / Aftercare Planning Primary Care Physician: Name: Dr. Galindo Psychiatrist: Name: Dr. Deleon in the past Therapist: Name Of Therapist: RAY Charlton Date of Appointment: May 22, 2016 Time of Appointment: 2pm Nurse Chemical Dependency: Name: none . Follow-Up Care Plan for Follow-Up Care: The patient will have prompt folloe up with her OP providers. Current Hospital Diet Patient's current hospital diet: Regular Diet Discharge Diet Recommended Diet: Regular Diet Procedures Procedures Performed: No Pending Studies Pending Studies at Discharge: No Medical Emergencies . Who to Call and When: Medical Emergencies: For questions or emergencies related to your hospital stay, please contact the Inpatient Behavioral Health Unit at [phone]. A intake clinician is on-call 13/11 for the Behavioral Health Unit for emergencies At any time you feel your situation is an emergency, you may also call 911 immediately. . Non-Emergent Contact Non-Emergency issues call your: Primary Care Provider, Psychiatrist, Therapist Advance Directives Existing Advance Directive: No Do You Have an Existing Mental: No Existing Living Will: No Existing Power of Repairer [employer]ge[employer]: No Advance Directives Info Given: To Pt/S.O. Discharge Summary Admission HPI Per the Admitting provider: Please see attached H&P Hospital Course (1) Major depressive disorder, recurrent severe without psychotic features 05/11 - Continue Lexapro 10 mg. daily - Family meeting with today - Q 15 min checks for safety - Encourage participation in group and individual counseling - The patient will need psychiatric aftercare - Assist the patient to learn and utilize healthy coping strategies. - obtain op records from previous providers 05/12 - Increase Lexapro to 20 mg starting tomorrow AM 05/13 - Provide the patient with educational materials on mindfulness - Continue Lexapro 20 mg. daily (2) GERA (generalized anxiety disorder) 05/11 - Lexapro as above - Continue prn ativan and vistaril for panic - Expose the patient to education re: mindfulness, meditation, relaxation 05/12 - Lexapro as above Risk Factors Assessment : Yes /single/: No Higher / Fall in social status: No Access to guns: No Health problems: No Mental Health Diagnoses: Yes Substance use disorders: No Previous attempt: No Protective Factors Assessment : Yes Responsible for young children: No Employed: Yes Supportive family: Yes Day of Discharge Assessment COURSE OF HOSPITALIZATION: During the patient's 6 day stay, she was restarted on Lexapro 20 mg daily which she had been on successfully previously. She remained highly anxious through most of her hospitalization. She would have panic attacks that would result in suicidal thinking. This slowly abated and for the last several days of her hospitalization, she felt improved, without suicidality and with significant relief of her anxiety. She therefore felt able to go home and return to work. Her visited frequently during the stay and was supportive. Family meeting was held with both her and father with whom she lives. She was provided mindfulness information during her stay which she found helpful. DAY OF DISCHARGE ASSESSMENT: Today the patient is requesting discharge. She feels much better and continues to report little anxiety and no suicidal thinking. She did like to take 1 day off before returning to work in order to adjust to being home which seems reasonable. Today she is casually and appropriately dressed and groomed. Gait and station are within normal limits. Eye contact is good. Affect is smiling. Speech is of normal rate volume and tone. Thoughts are organized and goal directed and without evidence of thought disorder. Recent and remote memory are intact per conversation. Intelligence is estimated to be average. Insight and judgment are improved over admission. Laboratory 05/09/16 10:00 05/09/16 10:00 Test 05/09/16 09:37 05/09/16 10:00 Urine Test NEG (NEG) Urine Opiates Screen NEG (NEG) Urine Methadone, Qualitative NEG (NEG) Urine Barbiturates NEG (NEG) Urine Phencyclidine (PCP) Level NEG (NEG) Ur Amphetamine/Methamphetamine NEG (NEG) MDMA (Ecstasy) Screen NEG (NEG) Urine Benzodiazepines Screen NEG (NEG) Urine Cocaine Metabolite NEG (NEG) Urine Marijuana (THC) NEG (NEG) Red Blood Count 4.55 M/uL (4.2-5.4) Mean Corpuscular Volume 88.8 fL (80-100) Mean Corpuscular Hemoglobin 30.5 pg (25-34) Mean Corpuscular Hemoglobin Concent 34.4 g/dl (32-36) RDW Standard Deviation 42.1 fL (36.4-46.3) RDW Coefficient of Variation 13.0 % (11.5-14.5) Mean Platelet Volume 12.9 fL (7.4-10.4) Anion Gap 9.0 mmol/L (3-11) Est Creatinine Clear Calc Drug Dose 111.1 ml/min Estimated GFR () 116.8 Estimated GFR (Non- 100.8 BUN/Creatinine Ratio 11.1 (10-20) Calcium Level 9.2 mg/dl (8.5-10.1) Total Bilirubin 1.0 mg/dl (0.2-1) Direct Bilirubin 0.2 mg/dl (0-0.2) Aspartate Amino Transf (AST/SGOT) 11 U/L (15-37) Alanine Aminotransferase (ALT/SGPT) 15 U/L (12-78) Alkaline Phosphatase 43 U/L (45-117) Total Protein 7.7 gm/dl (6.4-8.2) Albumin 4.5 gm/dl (3.4-5.0) Thyroid Stimulating Hormone (TSH) 5.370 uIu/ml (0.300-4.500) Free Thyroxine 1.25 ng/dl (0.80-1.60) Salicylates Level < 1.7 mg/dl (2.8-20) Acetaminophen Level < 2 ug/ml (10-30) Ethyl Alcohol mg/dL < 3.0 mg/dl (0-3) Total Time Total Time Spent (min): Greater than 30 minutes Total Time Included: examination of the patient, discharge planning, medication reconciliation, communication with other providers Tobacco Cessation at Discharge FDA approved Prescription: non-smoker
== END 2016-05-15 10:09 | disposition home or self-care (01) | DRG 885 ==
LOC: C.EDB 09:15 → C.MHU 14:07
PROVIDERS: ADMIT Psychiatry & Neurology Psychiatry; ATTEND Psychiatry & Neurology Psychiatry
DX: F33.2 Major depressive disorder, recurrent severe without psychotic features (principal); R45.851 Suicidal ideations; F41.1 Generalized anxiety disorder; F41.0 Panic disorder [episodic paroxysmal anxiety]; J45.909 Unspecified asthma, uncomplicated; F17.210 Nicotine dependence, cigarettes, uncomplicated

== ENCOUNTER 2016-09-15 21:56 | Emergency (ER) | payer OTHER ==
[~2016-09-15] VITALS: Ht 167.6 cm; Wt 75.8 kg
[~2016-09-15 21:56] MED LIST changes: -CLX20 PO; +LXP20 PO; +MULT-506 PO
[2016-09-15 21:58] VITALS: TEMP 37.1; Ht 167.6 cm; Wt 75.8 kg
[2016-09-15] MEDS ORDERED: ESCI1TAB10 PO (22:08)
[2016-09-15] MEDS ORDERED: LORA-741 PO (22:08)
[2016-09-15] MEDS ORDERED: METRONIDAZOLE 250 MG TAB PO STA (22:10)
[2016-09-15] MEDS ORDERED: DOXYCYCLINE HYCLATE 100 MG CAP PO STA (22:10)
[2016-09-15] MEDS ORDERED: NORCO 5/325MG HOME PACK PO ONE (22:15)
[2016-09-15] MEDS ORDERED: DIPHTHERIA/TETANUS/PERTUSSIS 0.5 ML SYR/VIAL IM. ONE (22:15)
[2016-09-15] MEDS ORDERED: DOXY100C PO (22:17)
[2016-09-15] MEDS ORDERED: METR-162 PO (22:17)
[2016-09-15 23:07] VITALS: BP 115/82; PULSE 65; O2SAT 96
--- NOTE | 2016-09-16 17:12 | EMERGENCY ROOM VISIT NOTE ---
History First contact with patient: 22:01 Chief Complaint: BITE Stated Complaint: BITE BY DOG ON L EYE History of Present Illness The patient is a 21 year old female who presents to the Emergency Room with complaints of dog bite injury to the left side of her face. The patient states the animal was a [place], and his own by a friend's family. The animal is reportedly up-to-date on its immunizations including rabies. The patient is unsure of her tetanus status. The injury occurred less than one hour ago, and the patient is having bruising and swelling around the left side face. She is not having difficulty with vision, and does not report other injuries. She rates her discomfort a 5/10. Review of Systems More than 10 systems were reviewed and otherwise negative with the exception of history of present illness. Past Medical/Surgical History Medical Problems: (1) Asthma (2) Bronchitis (3) GERA (generalized anxiety disorder) Surgical Problems: (1) History of cholecystectomy Family History Cancer Diabetes mellitus FHx: gallbladder disease Hypertension Social History Smoking Status: Current Every Day Smoker Alcohol Use: none, occasionally Marital Status: Housing Status: lives with family Occupation Status: employed Current/Historical Medications Scheduled Doxycycline Hyclate (Vibramycin), 100 MG PO BID Escitalopram Oxalate (Lexapro), 20 MG PO DAILY Lorazepam (Ativan), 0.5 MG PO prn Metronidazole (Flagyl), 500 MG PO TID Allergies Coded Allergies: Amoxicillin (Verified Allergy, Unknown, ., 09/15/16) Physical Exam Vital Signs Date Time Temp Pulse Resp B/P Pulse Ox O2 Delivery O2 Flow Rate FiO2 09/15/16 23:07 65 18 115/82 96 09/15/16 21:58 37.1 96 18 137/80 100 Room Air Pain Rating (0-10): 2.0 Physical Exam VITALS: Vitals are noted on the nurse's note and reviewed by myself. Vital signs stable. GENERAL: Well-developed, well-nourished, white female, who is in no acute distress and resting comfortably. Patient is cooperative with the examination. HEAD: There is slight ecchymosis appreciated underneath the left eyelid. There is no gross puncture wound. There is a 2 mm abrasion to the right temporal scalp that does not gape and will not require suture repair. EARS: External ear normal. External auditory canals clear, tympanic membranes pearly thomas without erythema or effusion bilaterally. EYES: Pupils equal round and reactive to light and accommodation. Conjunctivae without injection, sclerae without icterus. Extraocular movements intact. No evidence of corneal abrasion. NOSE: Patent, turbinates without inflammation or discharge. MOUTH: Mucous membranes moist. Tonsils are not enlarged. Pharynx without erythema, blood, or exudate. Uvula midline. Airway patent. NECK: Supple without nuchal rigidity. No lymphadenopathy. No thyromegaly. Cervical spine is nontender. HEART: Regular rate and rhythm without murmurs gallops or rubs. LUNGS: Clear to auscultation bilaterally without wheezes, rales or rhonchi. No retractions or accessory muscle use. SKIN: The skin was without evidence of infection or other significant injury. Medical Decision & Procedures Medications Administered Medications (Trade) Dose Ordered Sig/Howard Route Start Time Stop Time Status Last Admin Dose Admin Doxycycline Hyclate (Vibramycin Cap) 100 mg NOW STAT PO 09/15/16 22:10 09/15/16 22:12 DC 09/15/16 23:00 100 MG Metronidazole (Flagyl Tab) 500 mg NOW STAT PO 09/15/16 22:10 09/15/16 22:12 DC 09/15/16 23:01 500 MG Acetaminophen/ Hydrocodone Bitart ([place] 5/325mg Home Pack) 1 homepack UD ONCE PO 09/15/16 22:15 09/15/16 22:16 DC 09/15/16 23:00 1 HOMEPACK Diphtheria/ Pertussis/Tetanus Vacc (Adacel Inj) 0.5 ml ONCE ONCE IM. 09/15/16 22:15 09/15/16 22:16 DC 09/15/16 23:02 0.5 ML ED Course Physical exam and history were performed. Nursing notes and EMR were reviewed. Patient appears to have suffered a dog bite injury to the left side face and right temporal area. The patient does not have significant laceration or puncture wound. Her wounds were cleansed and dressed. She is unsure of her tetanus and this was updated. The patient did complete a dog bite form, and does not have concern regarding the dogs rabies status. The patient is allergic to penicillins and was given doxycycline and Flagyl here in the department. She will need to follow with her primary care physician for further Management. She was otherwise invited back to the ER with any new, worsening, or concerning symptoms. The chart was completed utilizing [employer] Speech Voice Recognition Software. Grammatical errors, random word insertions, pronoun errors, and incomplete sentences are an occasional consequence of this system due to software limitations, ambient noise, and hardware issues. Any formal questions or concerns about the content, text, or information contained within the body of this dictation should be directly addressed to the provider for clarification. . Medical Decision Differential diagnosis: Etiologies such as cellulitis, abscess, MRSA infection, DVT, necrotizing fasciitis, dermatitis, drug eruption, as well as others were entertained.. Impression Primary Impression: Dog bite Departure Information Dispostion Home / Self-Care Condition GOOD Prescriptions Metronidazole (FLAGYL) 500 Mg Tab 500 MG PO TID for 10 Days, #30 TAB Prov: Mani Holland PA-C 09/15/16 Doxycycline Hyclate (VIBRAMYCIN) 100 Mg Cap 100 MG PO BID for 10 Days, #20 CAP Prov: Mani Holland PA-C 09/15/16 Referrals Sven Galindo M.D. (PCP) Forms HOME CARE DOCUMENTATION FORM, IMPORTANT VISIT INFORMATION Patient Instructions My [facility] Additional Instructions You were seen and evaluated today on an emergency basis only. This is not a substitute for, or an effort to provide, complete comprehensive medical care. It is not possible to recognize and treat all injuries or illnesses in a single emergency department visit. For this reason it is recommended that you followup with your primary care physician next week for ongoing care and evaluation. For baseline pain relief you may alternate ibuprofen and acetaminophen every 4 hours for pain control. Take 600 mg ibuprofen (Advil) and then 4 hours later take 1000 mg acetaminophen (Tylenol). Do not take more than 3000 mg acetaminophen in a single day. [place] (hydrocodone/acetaminophen) 5/325 mg (homepack) every 6 hours as needed for worsening breakthrough pain. Do not drink or drive on [place]. This medication will likely make you tired. Do not take [place] and Tylenol at the same time as both contain acetaminophen. [place] may cause constipation. You may wish to take an [id number] stool softener like Colace if this occurs. Take doxycycline 100 mg twice daily for the next 10 days. Take this with a full stomach as it can cause nausea. Prevent exposure to the sun as you will be much more likely to sunburn while on this medication. Metronidazole(Flagyl) 500mg: Take one pill three times daily for 10 days for your infection. DO NOT drink alcohol or take alcohol containing products with this medication. Any medication can cause an allergic reaction, stop the pills immediately and return to the ER for rash, hives, breathing difficulties, or swelling. You are welcome to return to the emergency department anytime with new, worsening, or concerning symptoms.
== END 2016-09-15 23:09 | disposition home or self-care (01) ==
LOC: C.EDB 21:57 → C.EDD 23:09
DX: S01.05XA Open bite of scalp, initial encounter (principal); Z23 Encounter for immunization; F41.1 Generalized anxiety disorder; J45.909 Unspecified asthma, uncomplicated; Z79.899 Other long term (current) drug therapy; Z87.09 Personal history of other diseases of the respiratory system; Z82.49 Family history of ischemic heart disease and other diseases of the circulatory system; Z83.3 Family history of diabetes mellitus; Z83.79 Family history of other diseases of the digestive system; F17.200 Nicotine dependence, unspecified, uncomplicated; W54.0XXA Bitten by dog, initial encounter

== ENCOUNTER 2017-06-07 20:48 | Emergency (ER) | payer OTHER ==
[~2017-06-07] VITALS: Ht 167.6 cm; Wt 70.0 kg
[~2017-06-07 20:48] MED LIST changes: +ESCI1TAB10 PO; +LORA-741 PO; -LXP20 PO; -MULT-506 PO
[2017-06-07 20:59] VITALS: Ht 167.6 cm; Wt 70.0 kg
[2017-06-07] MEDS ORDERED: GI COCKTAIL PO ONE (23:15)
[2017-06-07] MEDS ORDERED: SODIUM CHLORIDE 0.9% 1000ML 1,000 ML IV ONE (23:15)
[2017-06-07 23:20] VITALS: O2SAT 99
[2017-06-07] MEDS ORDERED: ALUMINUM/MAGNESIUM SUSP 30 ML UDC ONE (23:25)
[2017-06-07] MEDS ORDERED: LIDOCAINE HCL 2% VISC SOLN 20 ML UDC ONE (23:26)
[2017-06-07 23:37] LABS: BASO % 0.2 %; BASO ABS # 0.02 K/uL (0-0.2); EOS % 0.2 %; EOS ABS # 0.02 K/uL (0-0.5); HEMATOCRIT 43.2 % (37-47); IG# 0.02 K/uL (0.00-0.02); LYMPH % 21.5 %; LYMPH ABS # 1.81 K/uL (1.2-3.4); MEAN CELL VOLUME 89.1 fL (80-100); MEAN CORPUSCULAR HEMOGLOBIN 30.9 pg (25-34); MEAN CORPUSCULAR HGB CONC 34.7 g/dl (32-36); MEAN PLATELET VOLUME 13.4 fL (7.4-10.4); MONO % 7.7 %; MONO ABS # 0.65 K/uL (0.11-0.59); NEUT % 70.2 %; PLATELET COUNT 186 K/uL (130-400); RED CELL DISTRIBUTION WIDTH CV 13.4 % (11.5-14.5); RED CELL DISTRIBUTION WIDTH SD 43.9 fL (36.4-46.3); WHITE BLOOD COUNT 8.42 K/uL (4.8-10.8)
[2017-06-07] MEDS ORDERED: PRENTAB26 PO (23:42)
[2017-06-07] MEDS ORDERED: DILTIAZEM 2% RE (23:42)
[2017-06-07] MEDS ORDERED: NAPR-1168 PO (23:42)
[2017-06-07] MEDS ORDERED: CALC500C3 PO (23:42)
[2017-06-07] MEDS ORDERED: ALBU18002 INH (23:42)
[2017-06-07] MEDS ORDERED: PRLSR20 PO (23:42)
[2017-06-08 00:06] LABS: ALBUMIN 5.1 gm/dl (3.4-5.0); CALCIUM 9.6 mg/dl (8.5-10.1); CREATININE 0.8 mg/dl (0.60-1.20); POTASSIUM 3.3 mmol/L (3.5-5.1)
[2017-06-08 00:09] LABS: TOTAL PROTEIN 9.2 gm/dl (6.4-8.2)
[2017-06-08 01:35] VITALS: BP 110/57; PULSE 78; TEMP 37; O2SAT 97
--- NOTE | 2017-06-08 06:45 | DIAGNOSTIC IMAGING REPORT ---
CHEST 2 VIEWS ROUTINE CLINICAL HISTORY: Mid chest pain COMPARISON STUDY: No previous studies for comparison. FINDINGS: The bones soft tissues and hemidiaphragms are normal. The cardiomediastinal silhouette is normal. The lungs are clear. The pulmonary vasculature is normal. IMPRESSION: Negative chest. The above report was generated using voice recognition software. It may contain grammatical, syntax or spelling errors. Electronically signed by: Nikhil Nunez M.D. 06/08/2017 6:43 AM Dictated Date/Time: 06/08/2017 6:40 AM
--- NOTE | 2017-06-09 01:24 | EMERGENCY ROOM VISIT NOTE ---
History First contact with patient: 22:49 Chief Complaint: CHEST PAIN Stated Complaint: CHEST PAIN Nursing Triage Summary: pt states pain in lower rib cage a few days ago. pain becoming more frequent and moved toward center of chest. pt states some sob. History of Present Illness The patient is a 22 year old female who presents to the Emergency Room with complaints of central chest pain worsening over the past few days. The patient states that she was seen by her primary care physician this week for the same complaint and was started on Prilosec twice daily. She is taking medication for 3 or 4 days, and states that her discomfort has worsened ever since. She is not had fever or chills. No coughing or wheezing. She does not have mid or lower abdominal pain, and describes a sharp pain in the very upper abdomen and lower chest. Exertion does not seem to improve or worsen her symptoms. No change with food. She rates her discomfort a 5/10. Review of Systems More than 10 systems were reviewed and otherwise negative with the exception of history of present illness. Past Medical/Surgical History Medical Problems: (1) Asthma (2) Bronchitis (3) GERA (generalized anxiety disorder) Surgical Problems: (1) History of cholecystectomy Family History Cancer Diabetes mellitus FHx: gallbladder disease Hypertension Social History Smoking Status: Former Smoker Alcohol Use: none, occasionally Marital Status: Housing Status: lives with family Occupation Status: employed Current/Historical Medications Scheduled Lorazepam (Ativan), 0.5 MG PO prn Multivit/Min/Iron/Fol Ac/Pren ( Vitamin), 1 TAB PO DAILY Omeprazole (Prilosec), 20 MG PO DAILY [cardizem 2% gel], 1 APPLN RE TID Scheduled PRN Albuterol Sulfate (Proair Respiclick), 2 PUFFS INH Q4H PRN for Wheezing Calcium Carbonate (Tums), 1-2 TABS PO DIRECTED PRN for Indigestion Naproxen Ds (Naprosyn Ds), 550 MG PO BID PRN for Pain Physical Exam Vital Signs Date Time Temp Pulse Resp B/P (MAP) Pulse Ox O2 Delivery O2 Flow Rate FiO2 06/08/17 01:35 37.0 78 20 110/57 97 06/07/17 23:56 83 20 113/65 100 Room Air 06/07/17 23:34 86 06/07/17 23:20 99 Room Air 06/07/17 20:59 37.0 103 18 122/65 99 Room Air Physical Exam VITALS: Vitals are noted on the nurse's note and reviewed by myself. Vital signs stable. GENERAL: Well-developed, well-nourished, white female, who is in no acute distress and resting comfortably. Patient is cooperative with the examination. HEAD: Normocephalic atraumatic. EARS: External ear normal. External auditory canals clear, tympanic membranes pearly thomas without erythema or effusion bilaterally. EYES: Pupils equal round and reactive to light and accommodation. Conjunctivae without injection, sclerae without icterus. Extraocular movements intact. NOSE: Patent, turbinates without inflammation or discharge. MOUTH: Mucous membranes moist. Tonsils are not enlarged. Pharynx without erythema, blood, or exudate. Uvula midline. Airway patent. NECK: Supple without nuchal rigidity. No lymphadenopathy. No thyromegaly. Cervical spine is nontender. HEART: Regular rate and rhythm without murmurs gallops or rubs. LUNGS: Clear to auscultation bilaterally without wheezes, rales or rhonchi. No retractions or accessory muscle use. ABDOMEN: Positive normal bowel sounds x 4. Soft with mild epigastric tenderness on palpation. No mid or lower abdominal tenderness. No CVA tenderness. MUSCULOSKELETAL: No muscle atrophy, erythema, or edema noted. Full range of motion without joint tenderness in all extremities. No calf tenderness. NEURO: Patient was alert and oriented to person place and time. CN II through XII grossly intact. No focal neurological deficits. Deep tendon reflexes 2+ throughout. SKIN: The skin was without rashes, erythema, edema, or bruising. Capillary refill less than 2 seconds. Medical Decision & Procedures ER Provider Diagnostic Interpretation: CHEST 2 VIEWS ROUTINE CLINICAL HISTORY: Mid chest pain COMPARISON STUDY: No previous studies for comparison. FINDINGS: The bones soft tissues and hemidiaphragms are normal. The cardiomediastinal silhouette is normal. The lungs are clear. The pulmonary vasculature is normal. IMPRESSION: Negative chest. Laboratory Results 06/07/17 23:17 Red Blood Count 4.85, Mean Corpuscular Volume 89.1, Mean Corpuscular Hemoglobin 30.9, Mean Corpuscular Hemoglobin Concent 34.7, Mean Platelet Volume 13.4, Neutrophils (%) (Auto) 70.2, Lymphocytes (%) (Auto) 21.5, Monocytes (%) (Auto) 7.7, Eosinophils (%) (Auto) 0.2, Basophils (%) (Auto) 0.2, Neutrophils # (Auto) 5.90, Lymphocytes # (Auto) 1.81, Monocytes # (Auto) 0.65, Eosinophils # (Auto) 0.02, Basophils # (Auto) 0.02 06/07/17 23:17 Test 06/07/17 23:10 06/07/17 23:17 06/07/17 23:23 Urine Color YELLOW Urine Appearance CLOUDY (CLEAR) Urine pH 8.5 (4.5-7.5) Urine Specific [place] 1.017 (1.000-1.030) Urine Protein NEG (NEG) Urine Glucose (UA) NEG (NEG) Urine Ketones 1+ (NEG) Urine Occult Blood NEG (NEG) Urine Nitrite NEG (NEG) Urine Bilirubin NEG (NEG) Urine Urobilinogen NEG (NEG) Urine Leukocyte Esterase NEG (NEG) Urine WBC (Auto) 1-5 /hpf (0-5) Urine RBC (Auto) 0-4 /hpf (0-4) Urine Hyaline Casts (Auto) 1-5 /lpf (0-5) Urine Epithelial Cells (Auto) 20-30 /lpf (0-5) Urine Bacteria (Auto) NEG (NEG) Urine Test NEG (NEG) White Blood Count 8.42 K/uL (4.8-10.8) Red Blood Count 4.85 M/uL (4.2-5.4) Hemoglobin 15.0 g/dL (12.0-16.0) Hematocrit 43.2 % (37-47) Mean Corpuscular Volume 89.1 fL (80-100) Mean Corpuscular Hemoglobin 30.9 pg (25-34) Mean Corpuscular Hemoglobin Concent 34.7 g/dl (32-36) Platelet Count 186 K/uL (130-400) Mean Platelet Volume 13.4 fL (7.4-10.4) Neutrophils (%) (Auto) 70.2 % Lymphocytes (%) (Auto) 21.5 % Monocytes (%) (Auto) 7.7 % Eosinophils (%) (Auto) 0.2 % Basophils (%) (Auto) 0.2 % Neutrophils # (Auto) 5.90 K/uL (1.4-6.5) Lymphocytes # (Auto) 1.81 K/uL (1.2-3.4) Monocytes # (Auto) 0.65 K/uL (0.11-0.59) Eosinophils # (Auto) 0.02 K/uL (0-0.5) Basophils # (Auto) 0.02 K/uL (0-0.2) RDW Standard Deviation 43.9 fL (36.4-46.3) RDW Coefficient of Variation 13.4 % (11.5-14.5) Immature Granulocyte % (Auto) 0.2 % Immature Granulocyte # (Auto) 0.02 K/uL (0.00-0.02) Anion Gap 8.0 mmol/L (3-11) Est Creatinine Clear Calc Drug Dose 103.2 ml/min Estimated GFR () 121.3 Estimated GFR (Non- 104.7 BUN/Creatinine Ratio 11.8 (10-20) Calcium Level 9.6 mg/dl (8.5-10.1) Total Bilirubin 1.3 mg/dl (0.2-1) Aspartate Amino Transf (AST/SGOT) 13 U/L (15-37) Alanine Aminotransferase (ALT/SGPT) 15 U/L (12-78) Alkaline Phosphatase 49 U/L (45-117) Total Protein 9.2 gm/dl (6.4-8.2) Albumin 5.1 gm/dl (3.4-5.0) Globulin 4.1 gm/dl (2.5-4.0) Albumin/Globulin Ratio 1.2 (0.9-2) Lipase 147 U/L (73-393) Bedside D-Dimer 301 ng/mlFEU (0-450) Bedside Troponin I < 0.030 ng/ml (0-0.045) Medications Administered Medications (Trade) Dose Ordered Sig/Howard Route Start Time Stop Time Status Last Admin Dose Admin Sodium Chloride 1,000 ml @ 999 mls/hr Q1H1M ONCE IV 06/07/17 23:15 18 00:15 DC 06/07/17 23:56 999 MLS/HR Miscellaneous Medication (Gi Cocktail) 24 ml NOW ONCE PO 06/07/17 23:15 06/07/17 23:16 DC 06/07/17 23:27 24 ML ED Course Physical exam and history were performed. Nursing notes, EMR, and Medication List were personally reviewed. Patient appears to have lower chest/epigastric abdominal pain for the past few days. The patient was started on Prilosec as an outpatient and has not had any improvement of symptoms. EKG was performed and was normal sinus rhythm at [address] elevation. IV access was established and labs were obtained. The patient was hydrated with normal saline. Chest x-ray was performed and she was placed on a cardiac exercise physiologist. The patient's blood work is as above and was reviewed. She does not have a significantly elevated white blood cell count, gross anemia, bandemia, or significant electrolyte imbalance. Lipase and transaminases are nondiagnostic. Portable d-dimer are both negative. Chest x-ray was reviewed by myself and radiology showing no acute findings. She remained in normal sinus rhythm on the cardiac exercise physiologist. On reevaluation the patient continues to be very comfortable without any worsening of her symptoms. I had a lengthy discussion with patient and family regarding options of care. She will need to follow with her primary care physician for further care and management. She may benefit from Holter monitor or event monitor if symptoms persist. She is otherwise asked back to the ER with any new, worsening, or concerning symptoms. The chart was completed utilizing [employer] Speech Voice Recognition Software. Grammatical errors, random word insertions, pronoun errors, and incomplete sentences are an occasional consequence of this system due to software limitations, ambient noise, and hardware issues. Any formal questions or concerns about the content, text, or information contained within the body of this dictation should be directly addressed to the provider for clarification. . Medical Decision Differential diagnosis includes, but is not limited to: Myocardial infarction, dysrhythmia, pericarditis, pneumothorax, aortic aneurysm/dissection, DVT/PE, anxiety, GERD, PUD, electrolyte imbalance, thyroid disorder, pneumonia, bronchitis, pancreatitis, and others Impression Primary Impression: Substernal precordial chest pain Departure Information Dispostion Home / Self-Care Condition GOOD Referrals Sven Galindo M.D. (PCP) Forms HOME CARE DOCUMENTATION FORM, IMPORTANT VISIT INFORMATION Patient Instructions My [facility] Additional Instructions You were seen and evaluated today on an emergency basis only. This is not a substitute for, or an effort to provide, complete comprehensive medical care. It is not possible to recognize and treat all injuries or illnesses in a single emergency department visit. For this reason it is recommended that you followup with your primary care physician next week with any ongoing or persistent symptoms. You are welcome to return to the emergency department anytime with new, worsening, or concerning symptoms.
== END 2017-06-08 01:46 | disposition home or self-care (01) ==
LOC: C.EDB 20:49 → C.EDA 06-08 01:46
DX: R07.2 Precordial pain (principal); F41.1 Generalized anxiety disorder; J45.909 Unspecified asthma, uncomplicated; Z79.899 Other long term (current) drug therapy; Z87.09 Personal history of other diseases of the respiratory system; Z87.891 Personal history of nicotine dependence; Z82.49 Family history of ischemic heart disease and other diseases of the circulatory system; Z83.3 Family history of diabetes mellitus; Z83.79 Family history of other diseases of the digestive system

== ENCOUNTER 2020-09-02 19:13 | Inpatient (IN) ==
[2020-09-02] MEDS ORDERED: METHYLERGONOVINE MALEATE 0.2 MG/ML AMP IM PRN (20:18)
[2020-09-02] MEDS ORDERED: OXYTOCIN 30 UNITS/500 ML BAG IV PRN (20:18)
[2020-09-02] MEDS ORDERED: miSOPROStoL 50 MCG TAB PO ONE ×2 (20:31→20:50)
[2020-09-02] MEDS ORDERED: miSOPROStoL 50 MCG TAB ONE (20:54)
[2020-09-02 21:20] LABS: Hematocrit (blood only) 39.1 % (37-47); Hemoglobin 13.2 g/dL (12.0-16.0); Mean Corpuscular Hemoglobin 31.1 pg (25-34); Mean Corpuscular Hgb Conc 33.8 g/dL (32-36); Mean Platelet Volume 13.7 fL (7.4-10.4); Platelet Count 99 K/uL (130-400); Platelet Estimate Decreased (Normal); RDW Coefficient of Variation 13.6 % (11.5-14.5); RDW Standard Deviation 44.8 fL (36.4-46.3); Red Blood Count 4.25 M/uL (4.2-5.4); White Blood Count 11.32 K/uL (4.8-10.8)
[2020-09-03] MEDS ORDERED: miSOPROStoL 50 MCG TAB PO ONE (01:20)
[2020-09-03 06:13] LABS: Mean Corpuscular Hgb Conc 33.5 g/dL (32-36)
[2020-09-03 06:16] LABS: Hematocrit (blood only) 38.5 % (37-47); Hemoglobin 12.9 g/dL (12.0-16.0); Mean Corpuscular Hemoglobin 31.2 pg (25-34); RDW Coefficient of Variation 13.8 % (11.5-14.5); Red Blood Count 4.14 M/uL (4.2-5.4); White Blood Count 10.31 K/uL (4.8-10.8)
[2020-09-03 06:25] LABS: Partial Thromboplastin Time 26.7 Seconds (21.0-31.0)
[2020-09-03 06:38] LABS: Platelet Count 98 K/uL (130-400)
[2020-09-03 06:39] LABS: Basophils # (auto) 0.02 K/uL (0-0.2); Basophils % (auto) 0.2 %; Eosinophils % (auto) 2.9 %; Immature Granulocytes # (auto) 0.03 K/uL (0.00-0.02); Immature Granulocytes % (auto) 0.3 %; Lymphocytes # (auto) 1.68 K/uL (1.2-3.4); Lymphocytes % (auto) 16.3 %; Monocytes % (auto) 7.8 %; Neutrophils # (auto) 7.48 K/uL (1.4-6.5); Neutrophils % (auto) 72.5 %; Platelet Estimate Decreased (Normal); RBC Morphology Unremarkable
[2020-09-03] MEDS ORDERED: OXYTOCIN 30 UNITS/500 ML BAG IV PRN ×2 (07:22→15:05)
[2020-09-03] MEDS: LACTATED RINGER'S 1,000 ML IV PRN ×3 (07:50→13:14)
[2020-09-03] MEDS ORDERED: fentaNYL citrate 100 MCG/2 ML VIAL ONE ×2 (09:25→14:07)
[2020-09-03] MEDS ORDERED: BUPIVACAINE 0.25% 30 ML VIAL ONE (09:25)
[2020-09-03] MEDS ORDERED: ePHEDrine sulfate 50 MG/ML AMP ONE (09:25)
[2020-09-03] MEDS ORDERED: fentaNYL 2MCG/ML ROPIVACAINE 1.25MG/ML 100 ML BAG EPI ONE (09:26)
--- NOTE | 2020-09-03 10:31 | Anesthesiology Consultation ---
Date of Service September 03, 2020 Assessment & Plan Chart Review Chart Review: Acceptable Risk for Labor Epidural Consults Requested none History Height/Weight Height: 5 ft 6 in Weight: 98.43 kg Allergies Allergy/AdvReac Type Severity Reaction Status Date / Time amoxicillin Allergy Severe HIVES-RASH Verified 11/17/19 08:47 Medications Home Medications Medication Instructions Recorded Confirmed Last Taken Vitamin 1 tab PO DAILY 09/02/20 09/02/20 09/02/20 08:00 Active Medications Generic Name Dose Route Start Last Admin Trade Name Freq PRN Reason Stop Dose Admin Lactated Ringer's 1,000 mls @ 125 mls/hr 09/02/20 20:18 09/03/20 10:06 Lr IV 09/04/20 20:17 999 mls/hr .Q8H PRN Administration L&D Protocol Protocol Oxytocin 30 units in 500 mls @ 4 mls/hr 09/03/20 07:22 09/03/20 08:40 Pitocin IV 09/05/20 07:21 0.24 units/hr .Q24H PRN 4 mls/hr Labor Induction/Augmentation Titration Protocol 0.24 UNITS/HR Past Medical History Medical History Anxiety Depression No medication Factor 5 Leiden mutation, heterozygous Social History Smoking Status: Former smoker Do You Dip or Chew Tobacco: No Hx Alcohol Use: No Hx Substance Use: No substance use type: does not use Physical Exam Vital Signs Last Vital Signs Temp 36.8 C 09/03/20 08:42 Pulse 88 09/03/20 10:28 Resp 18 09/03/20 08:42 BP 112/64 09/03/20 10:28 Pulse Ox 98 09/03/20 10:25 Testing Laboratory Results 09/03/20 05:41 APTT 26.7 Seconds (21.0-31.0) 09/03/20 05:41
[2020-09-03] MEDS ORDERED: NALOXONE HCL 1 MG in SODIUM CHLORIDE 0.9% 1000ML 1,000 ML IV PRN (10:33)
[2020-09-03] MEDS ORDERED: NALOXONE HCL 0.4 MG/1 ML VIAL/CARP IV PRN (10:33)
[2020-09-03] MEDS ORDERED: fentaNYL 2MCG/ML ROPIVACAINE 1.25MG/ML 100 ML BAG EPI PRN (10:33)
[2020-09-03] MEDS ORDERED: ePHEDrine sulfate 50 MG/ML AMP IV PRN (10:33)
[2020-09-03] MEDS ORDERED: diphenhydrAMINE 50 MG/ML VIAL IV PRN (10:33)
[2020-09-03] MEDS ORDERED: NURSING L&D Epidural Breakthrough Pain Update ONE (13:48)
[2020-09-03] MEDS ORDERED: LIDOCAINE HCL 2% 2 ML VIAL/AMP(20MG/ML) INFIL ONE (14:06)
--- NOTE | 2020-09-03 14:47 | Communication Note ---
Date of Service: September 03, 2020 Called for pt c/o pain. BP mildly elevated. Epidural dosed with lidocaine 1% 8cc pus fentanyl 100mcg in divided doses. VSS.
[2020-09-03] MEDS ORDERED: miSOPROStoL 100 MCG TAB ONE (15:04)
[2020-09-03] MEDS ORDERED: BENZOCAINE 20% AER SPR 82.5 GM CAN EXT PRN (15:05)
[2020-09-03] MEDS ORDERED: bisacodyL 10 MG SUPP PR PRN (15:05)
[2020-09-03] MEDS ORDERED: ACETAMINOPHEN W/CODEINE #3 1 TAB PO PRN (15:05)
[2020-09-03] MEDS ORDERED: METHYLERGONOVINE MALEATE 0.2 MG/ML AMP IM ONE (15:05)
[2020-09-03] MEDS ORDERED: DIPHTHERIA/TETANUS/PERTUSSIS 0.5 ML SYR/VIAL IM ONE (15:05)
[2020-09-03] MEDS ORDERED: HYDROCORTISONE ACETATE 25 MG SUPP PR PRN (15:05)
[2020-09-03] MEDS ORDERED: SUPERCREAM 0.870% 15 GM JAR EXT PRN (15:05)
[2020-09-03] MEDS ORDERED: oxyCODONE/ACETAMINOPHEN 5mg/325mg TAB PO PRN (15:05)
[2020-09-03] MEDS ORDERED: miSOPROStoL 100 MCG TAB PR ONE (15:15)
--- NOTE | 2020-09-03 16:02 | Anesthesia Procedure Note ---
Date of Service September 03, 2020 Anesthesia Post Epidural Note Vital Signs Vital Signs: Temp Pulse Resp BP Pulse Ox 37.3 C 76 20 136/61 97 09/03/20 13:15 09/03/20 16:00 09/03/20 15:55 09/03/20 16:00 09/03/20 15:05 Pain Intensity Bilateral Abdomen: Pain Intensity: 0 Notes Mental Status: alert / awake / arousable Nausea / Vomiting: adequately controlled Pain: adequately controlled Airway Patency, RR, SpO2: stable & adequate BP & HR: stable & adequate Hydration State: stable & adequate Neuraxial Anesthesia: was administered and sensory block is resolving Anesthetic Complications: no major complications apparent and Pt Satisfied with anesthetic care Epidural: Removed without complications and With tip intact
[2020-09-03] MEDS: ACETAMINOPHEN 325 MG TAB PO PRN ×2 (19:59→23:24)
[2020-09-03] MEDS: DOCUSATE SODIUM 100 MG CAP PO SCH (20:06)
--- NOTE | 2020-09-03 20:33 | Delivery Summary ---
DATE OF OPERATION: 09/03/2020 She is a 3, para 2, 1 previous spontaneous AB. Blood type is A negative, group B strep negative. She has been on blood thinners, Lovenox, for most of her . 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 When she was about 36 weeks, we switched her from 40 of Lovenox daily to heparin 5000 units subQ twice a day. She called the day prior to delivery, her water had broken. She came into the hospital, was placed on a monitor. heart rate was good. Contractions were sporadic. Started on p.o. Cytotec and given to 2 doses of p.o. Cytotec. The following morning, she was started on Pitocin. Pitocin was up. Eventually labor pains became quite strong. She requested and received epidural. She obtained good pain relief. We continued to turn up the Pitocin. When she was about 5 cm, membranes were ruptured surgically. Fluid was clear. She then had a good labor pattern. She went to full dilatation, pushed out a live male via direct occiput anterior position over an intact perineum. Infant was suctioned through the mouth and the nose. Shoulders were delivered without difficulty. Cord was allowed to pulse for 1 minute, then it was clamped, cut by the father. Cord blood was taken. With IV Pitocin running, the placenta was removed intact. She was also given IM Methergine and 800 mcg of rectal Cytotec. Inspection of the perineum revealed a superficial introital laceration at 5 o'clock and this was repaired with a running 3-0 chromic. Following this, hemostasis was good. Uterus contracted nicely. Estimated blood loss was about 100 mL and Apgars were deferred to the nurses. I attest to the content of the Intraoperative Record and any orders documented therein. Any exception s are noted below.
[2020-09-03] MEDS: HEPARIN SOD 5,000 UNIT/0.5 ML VIAL SQ SCH (21:05)
[2020-09-03] MEDS: IBUPROFEN 600 MG TAB PO PRN (21:05)
[2020-09-04] MEDS: IBUPROFEN 600 MG TAB PO PRN (03:49)
[2020-09-04 06:39] LABS: Hemoglobin 12.3 g/dL (12.0-16.0); Mean Corpuscular Hemoglobin 31.8 pg (25-34); Mean Corpuscular Hgb Conc 33.2 g/dL (32-36); Mean Corpuscular Volume 95.6 fL (80-100); Platelet Count 95 K/uL (130-400); Platelet Estimate Decreased (Normal); RDW Coefficient of Variation 14.1 % (11.5-14.5); RDW Standard Deviation 48.8 fL (36.4-46.3); Red Blood Count 3.87 M/uL (4.2-5.4)
[2020-09-04] MEDS: DOCUSATE SODIUM 100 MG CAP PO SCH (07:40)
[2020-09-04] MEDS: HEPARIN SOD 5,000 UNIT/0.5 ML VIAL SQ SCH (07:44)
[2020-09-04] MEDS ORDERED: PRENATAL VITAMIN 1 TAB PO SCH (08:00)
--- NOTE | 2020-09-04 08:31 | Obstetrical Progress Note ---
Date of Service September 04, 2020 Assessment & Plan Admission and Anticipated Discharge Date Admission Date: September 02, 2020 Physical Exam Physical Exam: abdomen soft and non tender no calf tenderness ambulating well vaginal bleeding scant hgb 12.3 Results & Data ([facility]) Vital Signs (Past 12 Hours) Vital Signs Temp Pulse Resp BP 09/04/20 08:06 36.5 C 70 16 100/56 L 09/04/20 03:45 36.6 C 88 20 118/71 09/03/20 23:20 36.7 C 75 20 106/70
[2020-09-04] MEDS: ACETAMINOPHEN 325 MG TAB PO PRN (11:47)
[2020-09-04] MEDS ORDERED: bisacodyL 5 MG TABEC PO SCH (20:00)
== END 2020-09-04 15:58 | disposition home or self-care (01) | DRG 806 ==
LOC: OPB 19:13 → 4S1 19:14 → 4S2 09-03 18:20